=== PATIENT | male | born 1995 | race Caucasian/White ===

== ENCOUNTER 2018-10-31 20:55 | Observation (INO) ==
--- NOTE | 2018-10-31 21:07 | Emergency Department Note ---
Disposition Clinical Impression: Foreign body sensation in throat Disposition: Admitted As Inpatient Condition: Undetermined Forms: Work/School Release, ED Satisfaction Letter Time of Disposition: 21:11 General Adult HPI - General Chief complaint: ED General Medical Stated complaint: possible blockage in stoma Time Seen by Provider: 10/31/18 21:02 Source: EMS Mode of arrival: EMS Limitations: physical limitation, other (baseline TBI) Nursing Notes Reviewed: Yes Vital Signs Reviewed: Yes - History of Present Illness HPI Narrative: 23-year-old male transfer from [facility] for endoscopy. The patient was noted to be eating chicken tenders at dinner and choked. He was initially able to have some water at [facility] emergency Department was being evaluated but then still continued to experience sensation of something caught in his throat to be given a GI cocktail. At that time the patient choked and descended on 85%. Patient is a large amount of secretions on evaluation. Patient is afebrile. No other complaints at this time. The patient was transferred to [facility] with agreement of the patient's power of flotation tank operator his mother for endoscopy. We will arrange endoscopy at this time. Patient maintaining O2 saturation breathing without difficulty. Patient does have a stoma from previous trach. He is not ventilator-dependent. The patient is unable to make decisions for himself. Power of flotation tank operator is his mother and is able to make decisions for him. - Related Data Home Medications Medication Instructions Recorded Confirmed DULoxetine [Cymbalta] 30 mg PO BID 10/31/18 10/31/18 Famotidine [Pepcid] 20 mg PO DAILY 10/31/18 10/31/18 Gabapentin [Neurontin] 300 mg PO TID 10/31/18 10/31/18 Guaifenesin [Guaifenesin ER] 1,200 mg PO BID 10/31/18 10/31/18 LevETIRAcetam [Keppra] 500 mg PO TID 10/31/18 10/31/18 OLANZapine [Zyprexa] 5 mg PO BID 10/31/18 10/31/18 Oxycodone HCl [Oxaydo] 5 mg PO Q4H PRN 10/31/18 10/31/18 Quetiapine Fumarate [Seroquel] 50 mg PO DAILY 10/31/18 10/31/18 clonazePAM [Klonopin] 1 mg PO TID 10/31/18 10/31/18 Previous Rx's Medication Instructions Recorded Mag Hydrox/Al Hydrox/Simeth 15 ml PO Q6HR PRN #150 [facility] [place] 10/31/18 [Maalox] Allergies Allergy/AdvReac Type Severity Reaction Status Date / Time Penicillins Allergy Swelling Verified 10/31/18 21:02 of Lip/Tongue/Throat Limitations: ROS unobtainable due to patients medical condition Past Medical History - Past Medical History Source: old records reviewed Medical history: Reports: GERD, seizures, other Psychiatric history: Reports: bipolar, schizophrenia - Social History Smoking Status: Never smoker Alcohol use: Reports: none Drug use: Reports: none Physical Exam - General Limitations: altered mental status (baseline) General appearance: alert, in no apparent distress - Head Head exam: atraumatic, normocephalic, normal inspection - Eye Eye exam: Present: normal appearance, PERRL, EOMI - ENT ENT exam: normal oropharynx, mucous membranes moist, other (tracheostomy, large amount of secretions) - Neck Neck exam: Present: full ROM, trachea midline - Chest Chest inspection: Present: normal inspection, symmetric chest wall rise - Respiratory Respiratory exam: Present: normal lung sounds bilaterally - Cardiovascular Cardiovascular exam: Present: regular rate, normal rhythm, normal heart sounds - Abdominal Exam Abdominal exam: Present: soft, Non-Tender. Absent: tenderness, distention, guarding, rebound, rigidity - Extremities Exam Extremities exam: Present: full ROM, normal capillary refill. Absent: tenderness - Neurological Exam Neurological exam: Present: alert, other (Baseline TBI. Weakness of the left upper extremity and left lower extremity. Consistent with paraplegia at [facility]) - Skin Skin exam: Present: warm, dry, intact, normal color Medical Decision Making - [facility] Narrative Medical decision making narrative: I spoke with Dr. Pranav Concepcion who is chief controller station for endoscopy. He agreed to take the patient to endoscopy suite. Patient will be transferred there at this time. No further questions or concerns noted.
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
[2018-10-31] MEDS ORDERED: Propofol 500 MG/50 ML INFUS..BTL ONE (22:22)
[2018-10-31] MEDS ORDERED: Lidocaine -MPF 2% 2 ML VIAL ONE (22:22)
--- NOTE | 2018-10-31 23:03 | Event Note ---
Date of Encounter: 10/31/18 Time of Encounter: 23:02 EGD Findings: Esophagus: Noted Trach; Esophagus was normal.. no food noted. Stomach: No food noted. Duodenum: Normal. I suspect he got choked transiently, and there were excessive secretions. I doubt he had meat impaction.
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
--- NOTE | 2018-10-31 23:22 | Anesthesia Evaluation Post Op ---
Date of Encounter: 10/31/18 Time of Encounter: 23:05 - Vital Signs Vital Signs: Vital Signs/O2 Sat/Glucose, Most Current Temp Pulse Resp BP Pulse Ox 10/31/18 22:33 79 16 140/85 99 10/31/18 21:45 66 16 140/95 98 10/31/18 21:03 98.6 F 65 18 140/93 95 - Lungs Lungs: Clear Ascult./Percussion - Airway Airway: Non-obstructed - Cardiovascular Baseline Rhythm - Mental Status Mental Status: Alert & Oriented, Answers Appropriately - Pain Pain Scale: 0 Pain Scale used: Numeric (1 - 10) - Nausea Vomiting Nausea Vomiting: Not Present - Hydration Hydration: NPO, Has not voided - Discharge PostOp Status: Transfer Patient to floor Anes Supervising Prov Stmt: Pt seen/evaluated, VSS and has met criteria for discharge to floor. - MD Harman
[2018-11-01 00:14] VITALS: BP 130/88
--- NOTE | 2018-11-12 16:36 | Discharge Summary ---
- NOTES TO OUTPATIENT PROVIDER Notes to Outpatient Provider: Patient kept in Hospital after MAC for presumed Esoph. Food bolus.. none was found Date of Encounter: 11/01/18 Time of Encounter: 22:00 - Discharge Diagnosis (1) Foreign body sensation in throat Priority: Primary Status: Acute (2) Paraplegia, incomplete Priority: Secondary Status: Chronic (3) Bipolar 1 disorder Priority: Secondary Status: Chronic (4) Hx of tracheostomy Priority: Secondary Status: Chronic Hospital course: Mr. Liang is a 23 year old male seen through the ED with concerns of Esoph. meat impaction. At the time of my evaluation, he was resting comfortably.. I decided to perform EGD given trach Stoma. EGD was uneventful with no food being found. He had MAC with Anesth., therefore could not be discharged to home, so we placed him on the floor. As soon as sedation wore off, he was DC'd back to senior living in his normal condition. - Time Spent with Patient Total time spent providing and/or coordinating discharge services: - Discharge Medications Prescriptions: No Action DULoxetine [Cymbalta] 30 mg PO BID clonazePAM [Klonopin] 1 mg PO TID Quetiapine Fumarate [Seroquel] 50 mg PO DAILY Oxycodone HCl [Oxaydo] 5 mg PO Q4H PRN PRN Reason: Pain LevETIRAcetam [Keppra] 500 mg PO TID Guaifenesin [Guaifenesin ER] 1,200 mg PO BID Gabapentin [Neurontin] 300 mg PO TID Famotidine [Pepcid] 20 mg PO DAILY OLANZapine [Zyprexa] 5 mg PO BID Mag Hydrox/Al Hydrox/Simeth [Maalox] 15 ml PO Q6HR PRN #150 [facility] PRN Reason: throat pain Home Medications: DULoxetine [Cymbalta] 30 mg PO BID 10/31/18 [History] Famotidine [Pepcid] 20 mg PO DAILY 10/31/18 [History] Gabapentin [Neurontin] 300 mg PO TID 10/31/18 [History] Guaifenesin [Guaifenesin ER] 1,200 mg PO BID 10/31/18 [History] LevETIRAcetam [Keppra] 500 mg PO TID 10/31/18 [History] Mag Hydrox/Al Hydrox/Simeth [Maalox] 15 ml PO Q6HR PRN #150 [facility] 10/31/18 [Rx] OLANZapine [Zyprexa] 5 mg PO BID 10/31/18 [History] Oxycodone HCl [Oxaydo] 5 mg PO Q4H PRN 10/31/18 [History] Quetiapine Fumarate [Seroquel] 50 mg PO DAILY 10/31/18 [History] clonazePAM [Klonopin] 1 mg PO TID 10/31/18 [History] Allergies/Adverse Reactions: Allergy/AdvReac Type Severity Reaction Status Date / Time Penicillins Allergy Swelling Verified 10/31/18 21:02 of Lip/Tongue/Throat Date of admission: 10/31/18 23:20 Primary care physician: PCP NONE Discharging clinician: Morgan Connell Anticipated date of discharge: 11/01/18 - Constitutional Vitals: Temp Pulse Resp BP Pulse Ox 98.2 F 64 18 130/88 94 11/01/18 00:13 11/01/18 00:13 11/01/18 00:13 11/01/18 00:13 11/01/18 00:13 General appearance: Present: A&O X 1, disheveled, pleasant, obese, answers questions appropriately - Patient Status Disposition: Transfer Other Condition: Good Overall status at discharge: patient is back to baseline - Discharge Instructions Follow Up With: NONE,PCP [Primary Care Provider] - - Diet and Activity Activity: resume usual activities as tolerated Diet: advance to your usual diet - VTE Reasons for not Prescribing Prophylaxis: Medical contraindication
== END 2018-11-01 01:35 | disposition other institution (70) ==
LOC: EMEROOARM 20:55 → 3NENU 20:55
PROVIDERS: ADMIT Internal Medicine; ATTEND Internal Medicine